=== PATIENT | male | born 1965 | race Caucasian/White ===

== ENCOUNTER 2016-10-28 08:59 | Emergency (ER) | payer MEDICAID ==
[~2016-10-28] VITALS: Ht 177.8 cm; Wt 78.0 kg
[~2016-10-28 08:59] MED LIST: OMEP20CA9 PO
[2016-10-28] MEDS ORDERED: FAMOTIDINE 20 MG/2 ML ONE (09:48)
[2016-10-28] MEDS ORDERED: ONDANSETRON 2MG/ML, 2ML ONE (09:48)
[2016-10-28] MEDS ORDERED: MORPHINE SULFATE 4 MG/ML, 1ML ONE (09:48)
[2016-10-28] MEDS ORDERED: MORPHINE SULFATE 4 MG/ML, 1ML IVPush PRN (10:00)
[2016-10-28] MEDS ORDERED: FAMOTIDINE 20 MG/2 ML IVP ONE (10:00)
[2016-10-28] MEDS ORDERED: SODIUM CHLORIDE 0.9% 1,000ML IVBOLUS ONE (10:00)
[2016-10-28] MEDS ORDERED: ONDANSETRON 2MG/ML, 2ML IVPush ONE (10:00)
[2016-10-28] MEDS ORDERED: SODIUM CHLORIDE FLUSH 10ML SYR IVF ONE (10:00)
[2016-10-28 10:01] LABS: ASPARTATE AMINO TRANSFERASE 11 U/L (15-37); BLOOD UREA NITROGEN 14 mg/dL (7-18)
[2016-10-28 10:06] LABS: IS PT STATUS REG ER OR PRE ER? YES
[2016-10-28 13:03] VITALS: BP 138/79
[2016-10-28 13:13] LABS: PATH.CAST-FLAG NOT PRESENT; SPERM-FLAG NOT PRESENT; SRC-FLAG NOT PRESENT; YLC-FLAG NOT PRESENT
[2016-10-28 13:20] LABS: XTAL-FLAG NOT PRESENT
== END 2016-10-28 15:00 | disposition home or self-care (01) ==
LOC: ED 10:40
DX: A08.39 Other viral enteritis (principal); R10.84 Generalized abdominal pain; F17.200 Nicotine dependence, unspecified, uncomplicated
CPT/HCPCS: 36415; 71010; 74176; 80053; 83690; 84484; 85025; 93005; 96361; 96374; 96375; 99285; J2405; J7030; S0028